=== PATIENT | male | born 1965 | race Caucasian/White ===

== ENCOUNTER 2019-07-07 19:09 | Emergency (ER) | payer BC ==
[~2019-07-07] VITALS: Ht 165.1 cm; Wt 85.0 kg
[2019-07-07] MEDS ORDERED: HYDROcodone/acetaminophen 5mg/325mg tablet PO ONE (19:40)
[2019-07-07] MEDS ORDERED: diazepam 5mg tablet PO ONE (20:15)
[2019-07-07 20:16] VITALS: BP 132/82
--- NOTE | 2019-07-07 20:17 | NUR ---
CT RESULTED. DR MCPHERSON REMOVED C COLLAR. PTS AT [facility]. PT JUST GIVEN NORCO FOR 8 OUT OF 10 PAIN PRIMARILY TO RIGHT LOWER BACK. CURRENT VSS.
== END 2019-07-07 20:25 | disposition home or self-care (01) ==
LOC: ER 19:10
DX: S13.4XXA Sprain of ligaments of cervical spine, initial encounter (principal); M25.512 Pain in left shoulder; M54.6 Pain in thoracic spine; G89.29 Other chronic pain; V49.88XA Car occupant (driver) (passenger) injured in other specified transport accidents, initial encounter; Y93.89 Activity, other specified; Y92.413 State road as the place of occurrence of the external cause; Y99.9 Unspecified external cause status
CPT/HCPCS: 70450; 72125; 72128; 73030; 99284